=== PATIENT | male | born 1940 | race Two or more races ===

== ENCOUNTER 2017-11-17 12:03 | Emergency (ER) | payer MEDICARE, MEDICAID ==
[~2017-11-17] VITALS: Ht 167.6 cm; Wt 86.5 kg
[2017-11-17 12:26] VITALS: BP 169/74
[2017-11-17] MEDS ORDERED: DUTA1CPM4 PO (12:50)
[2017-11-17] MEDS ORDERED: [UNRECOGNIZED DRUG - REMARK] PO (12:50)
[2017-11-17] MEDS ORDERED: BENA10TA4 PO (12:50)
== END 2017-11-17 13:31 | disposition home or self-care (01) ==
LOC: ED 13:00
DX: L23.5 Allergic contact dermatitis due to other chemical products (principal); I10 Essential (primary) hypertension; E11.9 Type 2 diabetes mellitus without complications
CPT/HCPCS: 99283

== ENCOUNTER 2019-03-13 01:43 | Emergency (ER) | payer MEDICARE, MEDICAID ==
[~2019-03-13] VITALS: Ht 175.3 cm; Wt 87.2 kg
[~2019-03-13 01:43] MED LIST: BENA10TA6 PO; DUTA1CPM4 PO; [UNRECOGNIZED DRUG - REMARK] PO
[2019-03-13 01:50] VITALS: BP 165/118
--- NOTE | 2019-03-13 01:58 | NUR ---
to room 03. Family at bedside. gown given.
--- NOTE | 2019-03-13 02:25 | NUR ---
PT HAS BEEN UP TO RESTROOM TO PROVIDE URINE SAMPLE. APPROX 120 CC OUT, BLADDER RESIDUAL IS 124 CC POST VOID. MD AWARE. URINE SENT TO LAB. PT AND FAMILY UPDATED ON PLAN OF CARE.
[2019-03-13] MEDS ORDERED: CHOLESTEROL MED (02:38)
[2019-03-13] MEDS ORDERED: TAMS-11 PO (02:38)
[2019-03-13] MEDS ORDERED: HTN MED (02:38)
[2019-03-13 02:44] LABS: BASOPHILS # (AUTO) 0.02 x10^3/uL (0-0.1); BASOPHILS % (AUTO) 0 % (0-1); EOSINOPHILS # (AUTO) 0.35 x10^3/uL (0-0.4); EOSINOPHILS % (AUTO) 3 % (1-7); LYMPHOCYTES # (AUTO) 2.37 x10^3/uL (1-3.4); LYMPHOCYTES % (AUTO) 21 % (22-44); MD NO; MEAN CORPUSCULAR HEMOGLOBIN 30.8 pg (27.5-34.5); MEAN CORPUSCULAR HGB CONC 33.1 g/dL (33.2-36.2); MEAN CORPUSCULAR VOLUME 93.1 fL (81-97); MEAN PLATELET VOLUME 8.4 fL (7.4-10.4); MONOCYTES # (AUTO) 0.95 x10^3/uL (0.2-0.8); MONOCYTES % (AUTO) 8 % (2-9); NEUTROPHILS # (AUTO) 7.55 x10^3/uL (1.8-6.8); NEUTROPHILS % (AUTO) 67 % (42-75); PLATELET COUNT 251 x10^3/uL (130-400); RED BLOOD COUNT 4.76 x10^6/uL (4.38-5.82); RED CELL DISTRIBUTION WIDTH 12.9 % (9.4-14.8)
[2019-03-13 02:47] LABS: ALANINE AMINOTRANSFERASE 63 U/L (12-78); ALBUMIN 3.6 g/dL (3.4-5.0); ANION GAP 7 mmol/L (5-15); CALCIUM 8.8 mg/dL (8.5-10.1); CHLORIDE 103 mmol/L (98-107); CREATININE 0.87 mg/dL (0.7-1.3)
[2019-03-13 02:49] LABS: ALKALINE PHOSPHATASE 127 U/L (45-117); BILIRUBIN,TOTAL 0.4 mg/dL (0.2-1.0); TOTAL PROTEIN 8.3 g/dL (6.4-8.2)
[2019-03-13 03:01] LABS: CULTURE INDICATED? YES; MICROSCOPIC INDICATED
--- NOTE | 2019-03-13 03:30 | NUR ---
PT CONTINUES AWAITING RESULTS, DENIES NEEDS AT THIS TIME.
[2019-03-13] MEDS ORDERED: CIPROFLOXACIN 500 MG TABLET ONE (03:49)
[2019-03-13] MEDS ORDERED: CIPROFLOXACIN 500 MG TABLET PO ONE (04:00)
--- NOTE | 2019-03-13 04:15 | NUR ---
PT MEDICATED AND CLEARED FOR DISCHARGE. PT DRESSED AT THIS TIME, DECLINES REPEAT VS UPON D/C. PT AMBULATING WELL UPON DEPARTURE.
== END 2019-03-13 04:27 | disposition home or self-care (01) ==
LOC: ED 04:00
DX: N30.01 Acute cystitis with hematuria (principal); I10 Essential (primary) hypertension; E11.9 Type 2 diabetes mellitus without complications
CPT/HCPCS: 36415; 74021; 80053; 81001; 83690; 85025; 87086; 99284

== ENCOUNTER 2019-03-17 00:31 | Emergency (ER) | payer MEDICARE, MEDICAID ==
[~2019-03-17] VITALS: Ht 162.6 cm; Wt 86.8 kg
[~2019-03-17 00:31] MED LIST changes: +CHOLESTEROL MED; +HTN MED; +TAMS-11 PO
[2019-03-17 01:11] LABS: BASOPHILS # (AUTO) 0.06 x10^3/uL (0-0.1); BASOPHILS % (AUTO) 1 % (0-1); EOSINOPHILS # (AUTO) 0.35 x10^3/uL (0-0.4); EOSINOPHILS % (AUTO) 3 % (1-7); LYMPHOCYTES # (AUTO) 2.47 x10^3/uL (1-3.4); LYMPHOCYTES % (AUTO) 20 % (22-44); MD NO; MEAN CORPUSCULAR VOLUME 93.8 fL (81-97); MEAN PLATELET VOLUME 8.1 fL (7.4-10.4); MONOCYTES # (AUTO) 1.23 x10^3/uL (0.2-0.8); MONOCYTES % (AUTO) 10 % (2-9); NEUTROPHILS # (AUTO) 8.11 x10^3/uL (1.8-6.8); NEUTROPHILS % (AUTO) 66 % (42-75); PLATELET COUNT 288 x10^3/uL (130-400); RED BLOOD COUNT 5.04 x10^6/uL (4.38-5.82); RED CELL DISTRIBUTION WIDTH 12.9 % (9.4-14.8)
--- NOTE | 2019-03-17 01:11 | NUR ---
BREAK RN:" IV SITE STARTED , LABS DRAWN. URINE SAMPLE TAKEN TO LAB. PT RESTING ON GURNEY, MONITORS APPLIED, SIDERAILS UP X2, CALL LIGHT WITHIN REACH
[2019-03-17 01:23] LABS: ALANINE AMINOTRANSFERASE 83 U/L (12-78); ALBUMIN 4.1 g/dL (3.4-5.0); ANION GAP 4 mmol/L (5-15); CALCIUM 9.6 mg/dL (8.5-10.1); CHLORIDE 102 mmol/L (98-107); CREATININE 1.02 mg/dL (0.7-1.3)
[2019-03-17 01:23] LABS: MICROSCOPIC AUTO
[2019-03-17 01:24] LABS: CULTURE INDICATED? YES
[2019-03-17 01:26] LABS: ALKALINE PHOSPHATASE 147 U/L (45-117); BILIRUBIN,TOTAL 0.4 mg/dL (0.2-1.0); TOTAL PROTEIN 9.2 g/dL (6.4-8.2)
--- NOTE | 2019-03-17 01:47 | NUR ---
RN to bedside, clinical pharmacy technician at bedside. Patient transported out of room for computed tomography scan. Awaiting results.
[2019-03-17 03:26] VITALS: BP 146/67
[2019-03-17] MEDS ORDERED: OMNIPAQUE 350 MG/ML, 100ML BOTTLE ONE (04:15)
--- NOTE | 2019-03-17 04:37 | NUR ---
RN to bedside, informed of need for chronic urethral catherization per MD. RN received appropriate catheter from supply. Inserted according to protocol aseptically. RN informed midlevel provider who informed patient of discharge. RN reviewed cleaning and emptying with patient's family. Patient getting dressed. Will discharge when paperwork and orders are available.
== END 2019-03-17 05:16 | disposition home or self-care (01) ==
LOC: ED 01:36
DX: R33.9 Retention of urine, unspecified (principal); R10.0 Acute abdomen; E11.9 Type 2 diabetes mellitus without complications; I10 Essential (primary) hypertension
CPT/HCPCS: 36415; 51702; 74177; 80053; 81001; 83690; 85025; 87086; 99284; Q9967

== ENCOUNTER 2019-07-21 11:41 | Day surgery (SDC) | payer MEDICAID, MEDICARE ==
[~2019-07-21] VITALS: Ht 167.6 cm; Wt 83.3 kg
[~2019-07-21 11:41] MED LIST changes: +BENA10TA59 PO; -BENA10TA6 PO
[2019-07-21 12:26] VITALS: BP 131/89
[2019-07-21] MEDS ORDERED: ATOR20TA PO (12:37)
[2019-07-21] MEDS ORDERED: NITR100C PO (12:37)
[2019-07-21] MEDS ORDERED: GLIP5TAB10 PO (12:37)
[2019-07-21] MEDS ORDERED: DUTA1CPM4 PO (12:37)
[2019-07-21] MEDS ORDERED: BENA20TA54 PO (12:37)
[2019-07-21] MEDS ORDERED: CEFU250T66 PO (12:37)
[2019-07-21] MEDS ORDERED: SULF-16 PO (12:37)
[2019-07-21] MEDS ORDERED: METF500T17 PO (12:37)
[2019-07-21] MEDS ORDERED: LACTATED RINGERS 1,000 ML IV SCH (12:46)
[2019-07-21 12:51] LABS: BASOPHILS # (AUTO) 0.24 x10^3/uL (0-0.1); BASOPHILS % (AUTO) 2 % (0-1); EOSINOPHILS # (AUTO) 0.28 x10^3/uL (0-0.4); EOSINOPHILS % (AUTO) 3 % (1-7); LYMPHOCYTES # (AUTO) 2.83 x10^3/uL (1-3.4); LYMPHOCYTES % (AUTO) 26 % (22-44); MD NO; MEAN CORPUSCULAR HEMOGLOBIN 30.5 pg (27.5-34.5); MEAN CORPUSCULAR HGB CONC 32.9 g/dL (33.2-36.2); MEAN CORPUSCULAR VOLUME 92.5 fL (81-97); MEAN PLATELET VOLUME 8.2 fL (7.4-10.4); MONOCYTES # (AUTO) 0.81 x10^3/uL (0.2-0.8); MONOCYTES % (AUTO) 8 % (2-9); NEUTROPHILS # (AUTO) 6.56 x10^3/uL (1.8-6.8); NEUTROPHILS % (AUTO) 61 % (42-75); PLATELET COUNT 307 x10^3/uL (130-400); RED BLOOD COUNT 5.31 x10^6/uL (4.38-5.82); RED CELL DISTRIBUTION WIDTH 13.3 % (9.4-14.8)
[2019-07-21 12:59] LABS: ANION GAP 7 mmol/L (5-15); CALCIUM 9.8 mg/dL (8.5-10.1); CHLORIDE 104 mmol/L (98-107)
[2019-07-21] MEDS ORDERED: CHLORHEXIDINE 15 ML UDC MM ONE (13:00)
[2019-07-21 13:02] LABS: ALANINE AMINOTRANSFERASE 33 U/L (12-78); ALKALINE PHOSPHATASE 131 U/L (45-117); BILIRUBIN,TOTAL 0.3 mg/dL (0.2-1.0); CREATININE 0.97 mg/dL (0.7-1.3); TOTAL PROTEIN 9.3 g/dL (6.4-8.2)
[2019-07-21] MEDS ORDERED: FENTANYL PF 250 MCG/5ML ONE (14:20)
[2019-07-21] MEDS ORDERED: MIDAZOLAM 1 MG/ML, 2ML ONE (14:20)
[2019-07-21] MEDS ORDERED: SUCCINYLCHOLINE 20 MG/ML, 10ML ONE (14:22)
[2019-07-21] MEDS ORDERED: PROPOFOL 10 MG/ML, 20ML ONE (14:22)
[2019-07-21] MEDS ORDERED: ONDANSETRON 2MG/ML, 2ML ONE (14:31)
[2019-07-21] MEDS ORDERED: DEXAMETHASONE 4 MG/ML, 1ML ONE (14:31)
[2019-07-21] MEDS ORDERED: ROCURONIUM 10 MG/ML,10ML ONE (14:42)
[2019-07-21] MEDS ORDERED: CEFAZOLIN 1,000 MG ONE ×2 (15:00→15:01)
[2019-07-21] MEDS ORDERED: OXYcodone 5 MG/5 ML ORAL.SOL UDC PO PRN (15:30)
[2019-07-21] MEDS ORDERED: FENTANYL PF 100 MCG/2ML IV PRN (15:30)
[2019-07-21] MEDS ORDERED: PROMETHAZINE 25 MG/ML, 1ML IV PRN (15:30)
[2019-07-21] MEDS ORDERED: HYDROmorphone 2 MG/ML, 1ML IVPush PRN (15:30)
[2019-07-21] MEDS ORDERED: ACETAMINOPHEN 325 MG TABLET PO PRN (15:30)
[2019-07-21] MEDS ORDERED: ONDANSETRON 2MG/ML, 2ML IV PRN (15:30)
[2019-07-21] MEDS ORDERED: OXYcodone 5 MG/5 ML ORAL.SOL UDC ONE (17:03)
[2019-07-21 18:19] VITALS: BP 136/66
[2019-07-21 20:00] VITALS: BP 125/76
== END 2019-07-21 21:00 | disposition home or self-care (01) ==
LOC: OR 11:41 → 4NE 17:58 → OR 21:00
PROVIDERS: ATTEND Urology
DX: N32.89 Other specified disorders of bladder (principal); C61 Malignant neoplasm of prostate; N40.1 Benign prostatic hyperplasia with lower urinary tract symptoms; R33.8 Other retention of urine; N30.00 Acute cystitis without hematuria; N28.1 Cyst of kidney, acquired; E11.9 Type 2 diabetes mellitus without complications; I10 Essential (primary) hypertension; Z79.84 Long term (current) use of oral hypoglycemic drugs; Z79.899 Other long term (current) drug therapy
CPT/HCPCS: 52235; 52601; 80053; 82962; 85025; 88305; 93005; J0330; J0690; J1100; J2250; J2405; J2704; J3010; J7120; G0378

== ENCOUNTER → 2019-09-02 | Outpatient (CLI) | payer MEDICARE ==
[~2019-09-02] MED LIST changes: +ATOR20TA PO; +BENA20TA54 PO; +CEFU250T66 PO; +GLIP5TAB10 PO; +METF500T17 PO; +NITR100C PO; +SULF-16 PO
== END | disposition home or self-care (01) ==
LOC: RAD 11:30
PROVIDERS: ATTEND Urology
DX: C61 Malignant neoplasm of prostate (principal)
CPT/HCPCS: 78306; A9503

== ENCOUNTER → 2019-09-26 | Outpatient (CLI) | payer MEDICARE ==
[~2019-09-26] MED LIST changes: +OMNIPAQUE 350 MG/ML, 100ML BOTTLE ONE
== END | disposition home or self-care (01) ==
LOC: CFH 14:51
PROVIDERS: ATTEND Urology
DX: N28.1 Cyst of kidney, acquired (principal); N28.89 Other specified disorders of kidney and ureter
CPT/HCPCS: 74170; 82565; Q9967